=== PATIENT | male | born 1955 | race Caucasian/White ===

== ENCOUNTER → 2018-09-07 | Outpatient (CLI) | payer OTHER ==
--- NOTE | 2018-09-07 08:33 | Diagnostic Imaging Report ---
TECHNIQUE: Magnetic resonance imaging of the LEFT KNEE was performed WITHOUT injected contrast. HISTORY: Knee pain COMPARISON: None available. FINDINGS: LIGAMENTS AND TENDONS: ACL: Intact PCL: Intact Collateral ligaments: Intact Iliotibial band: Unremarkable Popliteal tendon: Intact Extensor mechanism: Quadriceps and patellar tendons intact. Edema in superolateral Hoffa's fat. JOINT: Menisci: Medial: Degenerative signal without tear Lateral: Intact Articular Cartilage: Medial Compartment: Partial-thickness cartilage loss Lateral Compartment: Partial-thickness cartilage loss Patellofemoral Compartment: High-grade cartilage loss with regions of full-thickness erosion and subchondral edema predominantly involving the lateral facet and trochlea. Joint Fluid: The amount of fluid within the joint is within physiologic limits. BONE: As above No acute fracture. SOFT TISSUES: Otherwise, unremarkable. IMPRESSION: Advanced patellofemoral degenerative arthrosis with regions of full-thickness cartilage loss and subchondral edema involving the lateral talar facet and trochlea. Medial meniscus degeneration without tear. Signed by: Dr. Dakota Hammonds M.D. on 09/07/2018 8:29 AM
== END ==
LOC: MRI 06:54
PROVIDERS: ATTEND Family Medicine
DX: M23.92 Unspecified internal derangement of left knee (principal)